=== PATIENT | male | born 1995 | race Caucasian/White ===

== ENCOUNTER 2018-10-15 17:57 | Emergency (ER) | payer MEDICAID ==
[~2018-10-15] VITALS: Ht 175.3 cm; Wt 88.0 kg
[2018-10-15 22:01] VITALS: BP 160/90
== END 2018-10-15 22:04 | disposition home or self-care (01) ==
LOC: ER 17:57
DX: H61.22 Impacted cerumen, left ear (principal)
CPT/HCPCS: 69210; 99284; Z7610; 69209

== ENCOUNTER 2019-11-01 00:12 | Emergency (ER) | payer MEDICAID, SELFPAY ==
[~2019-11-01] VITALS: Ht 182.9 cm; Wt 93.0 kg
[2019-11-01 01:30] VITALS: BP 141/74
== END 2019-11-01 01:30 | disposition home or self-care (01) ==
LOC: ER 00:12
DX: Z03.818 Encounter for observation for suspected exposure to other biological agents ruled out (principal); F41.9 Anxiety disorder, unspecified
CPT/HCPCS: 71045; 87635; 93005; 99283; 99285